=== PATIENT | female | born 1990 | race Caucasian/White ===

== ENCOUNTER 2016-07-21 19:10 | Emergency (ER) | payer OTHER ==
[~2016-07-21] VITALS: Ht 160 cm; Wt 69.1 kg
[~2016-07-21 19:10] MED LIST: CLEOCIN HC150 MG/CAP PO; DEPO-PROVER150 MG/M1 IM; FLAGYL 250250 MG/TAB PO; FLEXERIL 1010 MG/TAB PO; IBU800 M1 PO; JOLESSA 30 MCG-1 TAB PO; LEVAQUIN 5500 MG/TA1 PO; LEXAPRO10 MG PO; MOTRIN 600600 MG/TAB PO; MULTI VITAMINS1 TAB PO; NORCO 325 MG-51 TAB PO; PERCOCET 325 MG1 TA2 PO; VITA-MIN1 CAP PO; WELLBUTRIN 75MG75 MG; ZITHROMAX Z PA250 MG PO; ZOFRAN 4MG T4 MG/TAB PO; ZOLOFT 100MG100 MG PO; ZOLOFT 25MG25 MG PO
[2016-07-21 19:18] VITALS: TEMP 98.6
[2016-07-21 20:57] VITALS: BP 132/78; PULSE 90
[2016-07-24] MEDS ORDERED: ZITHROMAX Z PA250 MG PO (02:38)
== END 2016-07-21 20:58 | disposition home or self-care (01) ==
LOC: COL.ER 19:10
DX: S90.32XA Contusion of left foot, initial encounter (principal); W22.8XXA Striking against or struck by other objects, initial encounter; Y92.009 Unspecified place in unspecified non-institutional (private) residence as the place of occurrence of the external cause

== ENCOUNTER 2016-08-12 07:58 | Day surgery (SDC) | payer OTHER ==
[2016-08-12] VITALS (9 sets, daily range): BP systolic 100–118; BP diastolic 40–57; PULSE 44–64; TEMP 98.1
[~2016-08-12] VITALS: Ht 160 cm; Wt 68.2 kg
[2016-08-12 08:57] LABS: ADJUSTED CALCIUM 9.6 mg/dL (8.4-10.2); ALANINE AMINOTRANSFERASE 19 U/L (9-52); ALBUMIN 4.1 gm/dL (3.5-5.0); ALKALINE PHOSPHATASE 101 U/L (50-136); ANION GAP 12 mmol/L (7-16); BILIRUBIN,TOTAL 0.6 mg/dL (0.0-1.0); BLOOD UREA NITROGEN 9 mg/dL (7-17); CALCIUM 9.7 mg/dL (8.4-10.2); CARBON DIOXIDE 23 mmol/L (22-30); CHLORIDE 106 mmol/L (98-107); CREATININE, serum 0.75 mg/dL (0.52-1.25); GLUCOSE 101 mg/dL (74-106); LIPASE 82 U/L (23-300); POTASSIUM 4.1 mmol/L (3.4-5.0); SODIUM 141 mmol/L (137-145); TOTAL PROTEIN 7.8 gm/dL (6.4-8.2)
[2016-08-12 09:02] LABS: BASO # 0.1 (0.0-0.2); BASO % 0.5 % (0.0-2.0); EOS # 0.5 (0.0-0.7); EOS % 3.8 % (0-4.0); GRAN # 6.5 (1.4-6.5); GRAN % 54.4 % (42.2-75.2); HEMATOCRIT 39.2 % (37.0-47.0); HEMOGLOBIN 12.9 g/dl (12.5-16.0); LYMPH % 33.9 % (20.0-51.0); MEAN CELL VOLUME 92 fl (80.0-100.0); MEAN CORPUSCULAR HEMOGLOBIN 30 pg (27.0-31.0); MEAN CORPUSCULAR HGB CONC 33 g/dl (33.0-37.0); MEAN PLATELET VOLUME 11.3 fl (7.4-10.4); MONO # 0.8 (0.1-0.6); MONO % 7.1 % (1.7-9.3); PLATELET COUNT 235 K/mm3 (130-400); RED BLOOD COUNT 4.27 M/mm3 (4.10-5.30); REDCELL DISTRIBUTION WIDTH-CV 12.2 % (11.5-14.5); WHITE BLOOD COUNT 11.9 K/mm3 (4.8-10.8)
[2016-08-12 09:26] LABS: TROPONIN-I < 0.012 ng/mL (0.000-0.034)
[2016-08-12 10:05] LABS: PH 5 (5-8); SQUAMOUS EPITHELIAL 0-2 /hpf; URINE APPEARANCE Clear; URINE BACTERIA None Seen /hpf; URINE BILIRUBIN Negative (NEGATIVE); URINE BLOOD 1+ (NEGATIVE); URINE COLOR Yellow; URINE GLUCOSE Negative (NEGATIVE); URINE KETONE Negative (NEGATIVE); URINE RBC 0-2 /hpf; URINE UROBILINOGEN Negative (NEGATIVE); URINE WBC 0-2 /hpf
[2016-08-13 02:00] VITALS: BP 95/34; PULSE 50; TEMP 98.4
[2016-08-13 06:05] VITALS: BP 98/39; PULSE 53; TEMP 98.4
[2016-08-13] MEDS ORDERED: NORCO 325 MG-7.1 TAB PO (07:05)
[2016-08-13 09:54] VITALS: BP 109/62; PULSE 66; TEMP 98.3
== END 2016-08-13 11:37 | disposition home or self-care (01) ==
LOC: COL.ER 07:58 → SDCO 12:25 → SURG 13:59 → SDCO 08-13 11:37
PROVIDERS: Emergency Medicine
DX: K80.10 Calculus of gallbladder with chronic cholecystitis without obstruction (principal); K91.72 Accidental puncture and laceration of a digestive system organ or structure during other procedure; Y65.8 Other specified misadventures during surgical and medical care; Z79.3 Long term (current) use of hormonal contraceptives; Z87.891 Personal history of nicotine dependence
CPT/HCPCS: OP; J0690; J1100; J1170; J2270; J2405; J2550; J2704; J3010; J7030; J7120

== ENCOUNTER 2017-01-10 23:39 | Emergency (ER) | payer OTHER ==
[~2017-01-10] VITALS: Ht 160 cm; Wt 67.4 kg
[~2017-01-10 23:39] MED LIST changes: +NORCO 325 MG-7.1 TAB PO
[2017-01-10 23:42] VITALS: BP 134/77; TEMP 98.7
[2017-01-11] MEDS ORDERED: FLEXERIL 1010 MG/TAB PO
[2017-01-11 00:20] VITALS: PULSE 62
== END 2017-01-11 00:20 | disposition home or self-care (01) ==
LOC: COL.ER 23:39
DX: S29.012A Strain of muscle and tendon of back wall of thorax, initial encounter (principal); M62.830 Muscle spasm of back; X50.0XXA Overexertion from strenuous movement or load, initial encounter; Y92.129 Unspecified place in nursing home as the place of occurrence of the external cause

== ENCOUNTER 2017-02-15 14:28 | Outpatient (RCR) | payer OTHER | END 2017-02-18 08:56 | disposition still patient (30) | LOC: WSOH 14:28 | DX: S39.012A Strain of muscle, fascia and tendon of lower back, initial encounter (principal); S16.1XXA Strain of muscle, fascia and tendon at neck level, initial encounter; M54.89 Other dorsalgia; X50.0XXA Overexertion from strenuous movement or load, initial encounter; Y99.0 Civilian activity done for income or pay; Z90.49 Acquired absence of other specified parts of digestive tract | CPT/HCPCS: G0283-GP ==

== ENCOUNTER 2017-02-23 13:06 | Outpatient (RCR) | payer OTHER | END 2017-05-24 | disposition home or self-care (01) | LOC: WSOH | DX: S16.1XXD Strain of muscle, fascia and tendon at neck level, subsequent encounter (principal); S39.012D Strain of muscle, fascia and tendon of lower back, subsequent encounter; X50.0XXD Overexertion from strenuous movement or load, subsequent encounter; Y92.122 Bedroom in nursing home as the place of occurrence of the external cause; Z88.1 Allergy status to other antibiotic agents; Z91.040 Latex allergy status; Y99.0 Civilian activity done for income or pay ==

== ENCOUNTER → 2017-07-27 | Outpatient (CLI) | payer OTHER | LOC: COL.RAD 13:13 | DX: R10.31 Right lower quadrant pain (principal) ==

== ENCOUNTER → 2020-02-14 | Outpatient (CLI) | payer OTHER, BC | LOC: ZCOL.LAB 14:08 | DX: Z20.828 Contact with and (suspected) exposure to other viral communicable diseases (principal) ==